=== PATIENT | female | born 1985 | race Caucasian/White ===

== ENCOUNTER 2018-12-05 12:40 | Inpatient (IN) ==
[2018-12-05] MEDS ORDERED: KETOROLAC 15 MG/1 ML VIAL IVP ONE (13:04)
[2018-12-05] MEDS ORDERED: Sodium Chloride 0.9% 1,000 ML PRIMARY IV ONE (13:04)
[2018-12-05 14:58] LABS: BLOOD UREA NITROGEN 10 mg/dL (7-22); BUN/CREATININE RATIO 16.66 (6-20); SERUM ALBUMIN 3.8 g/dL (3.5-4.8)
[2018-12-05 15:02] LABS: Hematocrit [HCT] 31.5 % (37.0-47.0); Hemoglobin [HGB] 10.2 g/dL (12.0-16.0); MEAN CORPUSCULAR HGB CONC 32.4 g/dL (33-37); MEAN CORPUSCULAR VOLUME 87.3 FL (81-99); RED BLOOD COUNT 3.61 10^6/uL (4.20-5.40)
[2018-12-05 15:03] LABS: BASOPHILS # (AUTO) 0.11 10*3/UL; BASOPHILS % (AUTO) 0.7 % (0-1); EOSINOPHILS # (AUTO) 0.56 10*3/UL; EOSINOPHILS % (AUTO) 3.7 % (0-8); LYMPHOCYTES # (AUTO) 1.59 10*3/uL; MEAN PLATELET VOLUME 9.8 FL (7.4-12.2); MONOCYTES # (AUTO) 1.14 10*3/UL (0.3-0.8); MONOCYTES % (AUTO) 7.5 % (5-15); NEUTROPHILS # (AUTO) 11.67 10*3/UL; NEUTROPHILS % (AUTO) 76.7 % (50-80); PLATELET MORPHOLOGY COMMENT NORMAL MORPHOLOGY (NORM); RBC MORPHOLOGY COMMENT NORMAL MORPHOLOGY (NORM); WBC MORPHOLOGY COMMENT NORMAL MORPHOLOGY (NORM)
[2018-12-05] MEDS ORDERED: MORPHINE SULFATE 4 MG/1 ML IVP ONE ×2 (16:27→18:19)
[2018-12-05] MEDS ORDERED: MORPHINE SULFATE 4 MG/1 ML ONE (16:29)
[2018-12-05] MEDS ORDERED: LORazepam 2 MG/1 ML VIAL ONE (16:43)
[2018-12-05] MEDS ORDERED: LORazepam 2 MG/1 ML VIAL IVP ONE (17:23)
[2018-12-05] MEDS ORDERED: LIDOCAINE W/ SODIUM BICARB 0.5 ML SYR SUBD PRN (19:07)
[2018-12-05] MEDS ORDERED: HYDROcodone-APAP 10 MG-325 MG TABLET PO PRN (19:12)
[2018-12-05] MEDS: ENOXAPARIN SODIUM 80 MG/0.8 ML SYRINGE SUBCUT SCH (19:43)
[2018-12-05] MEDS: Sodium Chloride 0.9% 1,000 ML PRIMARY IV SCH (19:43)
[2018-12-05] MEDS ORDERED: [UNRECOGNIZED DRUG - REMARK] IM ONE (20:06)
[2018-12-05] MEDS: HYDROcodone-APAP 10 MG-325 MG TABLET PO PRN (20:27)
[2018-12-06] MEDS: HYDROcodone-APAP 10 MG-325 MG TABLET PO PRN ×4 (00:34→08:57)
[2018-12-06 00:52] LABS: AMPHETAMINE SCREEN NEGATIVE (NEG); CANNABINOID SCREEN,URINE NEGATIVE (NEG); COCAINE SCREEN NEGATIVE (NEG); METHADONE URINE SCREEN NEGATIVE (NEG); METHAMPHETAMINES SCREEN,URINE NEGATIVE (NEG); OPIATE SCREEN,URINE POSITIVE (NEG); URINE SAMPLE TYPE VOIDED SPECIMEN
[2018-12-06 05:21] LABS: Hematocrit [HCT] 28.7 % (37.0-47.0); Hemoglobin [HGB] 9.2 g/dL (12.0-16.0); MEAN CORPUSCULAR VOLUME 88.9 FL (81-99); RED BLOOD COUNT 3.23 10^6/uL (4.20-5.40)
[2018-12-06 05:22] LABS: BASOPHILS % (AUTO) 0.7 % (0-1); EOSINOPHILS # (AUTO) 0.85 10*3/UL; EOSINOPHILS % (AUTO) 6.2 % (0-8); LYMPHOCYTES # (AUTO) 1.98 10*3/uL; MEAN CORPUSCULAR HGB CONC 32.1 g/dL (33-37); MEAN PLATELET VOLUME 9.8 FL (7.4-12.2); MONOCYTES # (AUTO) 1.32 10*3/UL (0.3-0.8); MONOCYTES % (AUTO) 9.7 % (5-15); NEUTROPHILS # (AUTO) 9.22 10*3/UL; NEUTROPHILS % (AUTO) 67.9 % (50-80); PLATELET MORPHOLOGY COMMENT NORMAL MORPHOLOGY (NORM); RBC MORPHOLOGY COMMENT NORMAL MORPHOLOGY (NORM); WBC MORPHOLOGY COMMENT NORMAL MORPHOLOGY (NORM)
[2018-12-06] MEDS: ENOXAPARIN SODIUM 80 MG/0.8 ML SYRINGE SUBCUT SCH ×2 (07:46→20:32)
[2018-12-06] MEDS: Sodium Chloride 0.9% 1,000 ML PRIMARY IV SCH (08:52)
[2018-12-06] MEDS ORDERED: oxyCODONE/APAP 10/325 Tab 1 EACH TAB PO PRN (11:15)
[2018-12-06] MEDS ORDERED: oxyCODONE IR Tab 5 MG TAB PO ONE (15:30)
[2018-12-06] MEDS ORDERED: AZITHROMYCIN 250 MG TABLET PO ONE (16:07)
[2018-12-06] MEDS: oxyCODONE/APAP 10/325 Tab 1 EACH TAB PO PRN ×2 (16:43→20:32)
[2018-12-06] MEDS: cefTRIAXone Inj 2 GM in Sodium Chloride 0.9% 100 ML IV SCH (16:43)
[2018-12-06] MEDS ORDERED: Apixaban 5 MG TABLET PO SCH ×3 (20:00→21:00)
[2018-12-06] MEDS: MELATONIN 5 MG TABLET PO PRN (20:44)
[2018-12-07] MEDS: oxyCODONE/APAP 10/325 Tab 1 EACH TAB PO PRN ×6 (00:40→20:39)
[2018-12-07 05:04] LABS: BASOPHILS % (AUTO) 0.8 % (0-1); EOSINOPHILS % (AUTO) 8.3 % (0-8); Hematocrit [HCT] 28.7 % (37.0-47.0); Hemoglobin [HGB] 9.1 g/dL (12.0-16.0); MEAN CORPUSCULAR HGB CONC 31.7 g/dL (33-37); MEAN CORPUSCULAR VOLUME 87.5 FL (81-99); MONOCYTES % (AUTO) 11.5 % (5-15); NEUTROPHILS % (AUTO) 62.6 % (50-80); RED BLOOD COUNT 3.28 10^6/uL (4.20-5.40)
[2018-12-07 05:05] LABS: EOSINOPHILS # (AUTO) 1.07 10*3/UL; LYMPHOCYTES # (AUTO) 2.05 10*3/uL; MONOCYTES # (AUTO) 1.48 10*3/UL (0.3-0.8)
[2018-12-07 05:17] LABS: BLOOD UREA NITROGEN 5 mg/dL (7-22); BUN/CREATININE RATIO 8.33 (6-20)
[2018-12-07 05:28] LABS: PLATELET MORPHOLOGY COMMENT NORMAL MORPHOLOGY (NORM); RBC MORPHOLOGY COMMENT NORMAL MORPHOLOGY (NORM); WBC MORPHOLOGY COMMENT NORMAL MORPHOLOGY (NORM)
[2018-12-07] MEDS: AZITHROMYCIN 250 MG TABLET PO SCH (08:50)
[2018-12-07] MEDS: ENOXAPARIN SODIUM 80 MG/0.8 ML SYRINGE SUBCUT SCH (08:50)
[2018-12-07] MEDS ORDERED: AZITHROMYCIN 250 MG TABLET PO SCH (09:00)
[2018-12-07] MEDS: cefTRIAXone Inj 2 GM in Sodium Chloride 0.9% 100 ML IV SCH (16:43)
[2018-12-07] MEDS: Apixaban 5 MG TABLET PO SCH (20:39)
[2018-12-08] MEDS: oxyCODONE/APAP 10/325 Tab 1 EACH TAB PO PRN ×2 (00:37→04:48)
[2018-12-08 05:21] LABS: BLOOD UREA NITROGEN 6 mg/dL (7-22)
[2018-12-08 05:48] LABS: RED BLOOD COUNT 3.18 10^6/uL (4.20-5.40)
[2018-12-08 05:49] LABS: EOSINOPHILS # (AUTO) 1.33 10*3/UL; EOSINOPHILS % (AUTO) 12.7 % (0-8); Hematocrit [HCT] 27.6 % (37.0-47.0); Hemoglobin [HGB] 8.9 g/dL (12.0-16.0); LYMPHOCYTES # (AUTO) 1.75 10*3/uL; MEAN CORPUSCULAR HGB CONC 32.2 g/dL (33-37); MEAN CORPUSCULAR VOLUME 86.8 FL (81-99); MEAN PLATELET VOLUME 10.5 FL (7.4-12.2); MONOCYTES # (AUTO) 1.17 10*3/UL (0.3-0.8); MONOCYTES % (AUTO) 11.1 % (5-15); NEUTROPHILS # (AUTO) 6.06 10*3/UL; NEUTROPHILS % (AUTO) 57.5 % (50-80); PLATELET MORPHOLOGY COMMENT NORMAL MORPHOLOGY (NORM); RBC MORPHOLOGY COMMENT NORMAL MORPHOLOGY (NORM); WBC MORPHOLOGY COMMENT NORMAL MORPHOLOGY (NORM)
[2018-12-08] MEDS: Apixaban 5 MG TABLET PO SCH ×2 (08:02→21:38)
[2018-12-08] MEDS: AZITHROMYCIN 250 MG TABLET PO SCH (08:03)
[2018-12-08] MEDS: oxyCODONE IR Tab 5 MG TAB PO PRN ×4 (09:26→21:38)
[2018-12-08] MEDS ORDERED: Influenza 19-20 Vaccine (6mo+) 60 MCG/0.5 ML SYRINGE IM ONE (10:45)
[2018-12-08] MEDS ORDERED: Senna Tab 8.6 MG TAB PO PRN (13:05)
[2018-12-08] MEDS: DOCUSATE 100 MG CAPSULE PO SCH ×2 (13:11→21:38)
[2018-12-08] MEDS: cefTRIAXone Inj 2 GM in Sodium Chloride 0.9% 100 ML IV SCH (16:20)
[2018-12-08] MEDS: ACETAMINOPHEN 325 MG TABLET PO PRN (17:33)
[2018-12-09] MEDS: oxyCODONE IR Tab 5 MG TAB PO PRN ×6 (01:52→19:21)
[2018-12-09] MEDS: AZITHROMYCIN 250 MG TABLET PO SCH (09:06)
[2018-12-09] MEDS: DOCUSATE 100 MG CAPSULE PO SCH ×2 (09:06→21:01)
[2018-12-09] MEDS: Apixaban 5 MG TABLET PO SCH ×2 (09:06→21:01)
[2018-12-09] MEDS: POLYETHYLENE GLYCOL 3350 17 GM POWDER PO SCH (09:06)
[2018-12-09 15:10] LABS: HIV ANTIBODY NEGATIVE (N); HIV-1 P24 ANTIGEN NEGATIVE (N)
[2018-12-09] MEDS ORDERED: FUROSEMIDE 10 MG/1 ML - 10 ML IVP ONE (15:53)
[2018-12-09] MEDS: cefTRIAXone Inj 2 GM in Sodium Chloride 0.9% 100 ML IV SCH (16:04)
[2018-12-09] MEDS: ACETAMINOPHEN 325 MG TABLET PO PRN (17:28)
[2018-12-09] MEDS: POTASSIUM CHLORIDE 20 MEQ TAB PO SCH (17:52)
[2018-12-10] MEDS: oxyCODONE IR Tab 5 MG TAB PO PRN ×6 (00:08→21:35)
[2018-12-10 07:10] LABS: Hematocrit [HCT] 27.5 % (37.0-47.0); Hemoglobin [HGB] 8.7 g/dL (12.0-16.0); MEAN CORPUSCULAR VOLUME 87.6 FL (81-99); RED BLOOD COUNT 3.14 10^6/uL (4.20-5.40)
[2018-12-10 07:11] LABS: MEAN CORPUSCULAR HGB CONC 31.6 g/dL (33-37); MEAN PLATELET VOLUME 10.3 FL (7.4-12.2)
[2018-12-10] MEDS: FUROSEMIDE 10 MG/1 ML - 4 ML IVP SCH ×2 (07:11→12:29)
[2018-12-10] MEDS: POTASSIUM CHLORIDE 20 MEQ TAB PO SCH (08:58)
[2018-12-10] MEDS: DOCUSATE 100 MG CAPSULE PO SCH ×2 (08:59→22:56)
[2018-12-10] MEDS: AZITHROMYCIN 250 MG TABLET PO SCH (08:59)
[2018-12-10] MEDS: Apixaban 5 MG TABLET PO SCH ×2 (09:12→21:34)
[2018-12-10 11:46] LABS: HEPATITIS B SURFACE AG Negative (Negative)
[2018-12-10] MEDS: POLYETHYLENE GLYCOL 3350 17 GM POWDER PO SCH (12:29)
[2018-12-10] MEDS: cefTRIAXone Inj 2 GM in Sodium Chloride 0.9% 100 ML IV SCH (16:05)
[2018-12-10] MEDS: MELATONIN 5 MG TABLET PO PRN (21:35)
[2018-12-11] MEDS: oxyCODONE IR Tab 5 MG TAB PO PRN ×4 (01:28→14:15)
[2018-12-11 05:05] LABS: BLOOD UREA NITROGEN 8 mg/dL (7-22); BUN/CREATININE RATIO 13.33 (6-20)
[2018-12-11] MEDS: FUROSEMIDE 10 MG/1 ML - 4 ML IVP SCH ×2 (07:32→12:50)
[2018-12-11] MEDS: DOCUSATE 100 MG CAPSULE PO SCH (08:46)
[2018-12-11] MEDS: POTASSIUM CHLORIDE 20 MEQ TAB PO SCH (08:46)
[2018-12-11] MEDS: POLYETHYLENE GLYCOL 3350 17 GM POWDER PO SCH (08:46)
[2018-12-11] MEDS: Apixaban 5 MG TABLET PO SCH (08:46)
[2018-12-11] MEDS ORDERED: POTASSIUM CHLORIDE 20 MEQ TAB PO ONE (10:00)
[2018-12-11 10:52] VITALS: BP 110/60; RESP 20; TEMP 97.5
[2018-12-11 15:12] VITALS: O2SAT 95
[2018-12-11] MEDS: cefTRIAXone Inj 2 GM in Sodium Chloride 0.9% 100 ML IV SCH (15:24)
[2018-12-11] MEDS: ACETAMINOPHEN 325 MG TABLET PO PRN (15:24)
== END 2018-12-11 16:29 | disposition short-term general hospital (02) | DRG 193 ==
LOC: ER 12:40 → MED/SURG 12:40
PROVIDERS: ADMIT Internal Medicine; ATTEND Family Medicine